=== PATIENT | male | born 1975 | race Caucasian/White ===

== ENCOUNTER → 2017-04-05 | Outpatient (CLI) | payer BC ==
[2017-04-05 07:59] LABS: BASOPHILS # (AUTO) 0.06 10*3/UL; BASOPHILS % (AUTO) 0.6 % (0-1); EOSINOPHILS # (AUTO) 0.22 10*3/UL; EOSINOPHILS % (AUTO) 2.2 % (0-8); HEMATOCRIT 43.6 % (42.0-52.0); HEMOGLOBIN 14.9 g/dL (14.0-18.0); LYMPHOCYTES # (AUTO) 3.42 10*3/uL; MEAN CORPUSCULAR HEMOGLOBIN 31.7 PG (27-31); MEAN CORPUSCULAR HGB CONC 34.2 g/dL (33-37); MEAN CORPUSCULAR VOLUME 92.8 FL (80-90); MEAN PLATELET VOLUME 9.8 FL (7.4-12.2); MONOCYTES # (AUTO) 0.71 10*3/UL (0.3-0.8); MONOCYTES % (AUTO) 7.2 % (5-15); NEUTROPHILS # (AUTO) 5.38 10*3/UL
[2017-04-05 08:15] LABS: PLATELET MORPHOLOGY COMMENT NORMAL MORPHOLOGY (NORM); RBC MORPHOLOGY COMMENT NORMAL MORPHOLOGY (NORM); WBC MORPHOLOGY COMMENT NORMAL MORPHOLOGY (NORM)
[2017-04-05 08:26] LABS: BLOOD UREA NITROGEN 15 mg/dL (7-22); BUN/CREATININE RATIO 21.42 (6-20); CALCIUM 9.5 mg/dL (8.7-10.7); CHOL/HDL RATIO 3.81 RATIO (0-4.0); EST GLOMERULAR FILTRATION > 60 (>60 ml/min/1.73m(2)); HDL CHOLESTEROL 53 mg/dL (40-150); SERUM ALBUMIN 4.8 g/dL (3.5-4.8); SERUM CHOLESTEROL 202 mg/dL (120-200)
[2017-04-05 08:41] LABS: BILIRUBIN,URINE NEGATIVE (NEG); CLARITY,URINE CLEAR (CLEAR); COLOR,URINE YELLOW; GLUCOSE, URINE (UA) NEGATIVE (NEG); NITRATE,URINE NEGATIVE (NEG); OCCULT BLOOD,URINE NEGATIVE (NEG); PH,URINE 6.5 (5.0-8.5); PROTEIN,URINE NEGATIVE (NEG); UROBILINOGEN,URINE 0.2 mg/dL (0.2)
[2017-04-05 09:00] LABS: RBC,URINE 0 /hpf; URINE SAMPLE TYPE CLEAN CATCH URINE; WBC,URINE 0
--- NOTE | 2017-04-05 11:01 | DI ---
MRI THORACIC SPINE W/O CN,04/05/2017 7:45 AM: Clinical History: Mid back pain. Previous Exam: None at this facility. Findings: Multiplanar MR images are obtained through the thoracic spine without contrast. Vertebral body height is preserved. Intervertebral disc height is also preserved. The spinal cord descends normally with n ormal course, caliber and signal characteristics. The neuroforamina are widely patent throughout the thoracic spine. There is no significant disc desic cation except for at the upper thoracic spine where there is mild desiccation at the C2/3, T3/4 and C 4/5 levels. There is mild edema involving the inferior endplate of the first lumbar vertebral body. The paraspinal musculature is unremarkable. Visualized portions of the posterior fossa are unremarkable as well. Impression: 1. Normal thoracic spine.
== END ==
LOC: MRI 07:37
PROVIDERS: ATTEND Internal Medicine
DX: M54.89 Other dorsalgia (principal); F90.9 Attention-deficit hyperactivity disorder, unspecified type; R14.0 Abdominal distension (gaseous); L81.8 Other specified disorders of pigmentation; R10.84 Generalized abdominal pain
CPT/HCPCS: 36415; 72146; 80053; 80061; 81001; 84443; 85025; 86704; 86803

== ENCOUNTER → 2017-04-06 | Outpatient (CLI) | payer BC ==
--- NOTE | 2017-04-06 08:45 | DI ---
MRI LUMBAR SPINE W/O CN,04/06/2017 7:55 AM: Clinical History: Generalized muscle weakness. Previous Exam: None at this facility. Findings: Multiplanar MR images are obtained through the lumbar spine without contrast. Bony alignment is anatomic. No fractures are seen. Marrow signal is within normal limits. The spinal cord descends normally with a normal conus at the L1 level. There is some mild edema involving the anterior inferior endplate of the 12th thoracic vertebral body . Disc signal is preserved throughout. There are some mild disc desiccation and loss of intervertebral disc height at the L4/5 level with a small right-sided foraminal disc bulge contributing to mild to m oderate right neural foraminal narrowing. There is no other stenosis at any other level. Impression: 1. Small right foraminal disc bulge at L4/5 contributing to mild to moderate right neural foraminal n arrowing.
== END ==
LOC: MRI 07:52
PROVIDERS: ATTEND Internal Medicine
DX: M62.81 Muscle weakness (generalized) (principal); M47.26 Other spondylosis with radiculopathy, lumbar region
CPT/HCPCS: 72148

== ENCOUNTER → 2017-05-30 | Outpatient (CLI) | payer BC ==
--- NOTE | 2017-05-31 06:31 | DI ---
XR FINGERS MIN 2VW,05/30/2017 1:43 PM: Clinical History: Right fifth digit pain Previous Exam: None at this facility. Findings: 3 views of the right fifth digit are obtained, and demonstrate anatomic alignment without fractures. Surrounding soft tissues are unremarkable. Impression: No fracture.
== END ==
LOC: MOB RAD 13:08
PROVIDERS: ATTEND Internal Medicine
DX: S69.91XA Unspecified injury of right wrist, hand and finger(s), initial encounter (principal)
CPT/HCPCS: 73140